=== PATIENT | female | born 1965 | race Caucasian/White ===

== ENCOUNTER 2016-12-26 05:31 | Day surgery (SDC) | payer OTHER ==
[~2016-12-26] VITALS: Ht 152.4 cm; Wt 48.2 kg
[~2016-12-26 05:31] MED LIST: LOVASTATIN; METFORMIN; VITAMIN C; VITAMIN D
[2016-12-26] MEDS ORDERED: CALC600T5 PO (06:47)
[2016-12-26] MEDS ORDERED: LISI20TA11 PO (06:47)
[2016-12-26] MEDS ORDERED: CETI10TA34 PO (06:47)
[2016-12-26] MEDS ORDERED: LOVA20TA PO (06:47)
[2016-12-26] MEDS ORDERED: OMEP20CA16 PO (06:47)
[2016-12-26] MEDS ORDERED: GLIP5TAB13 PO (06:47)
[2016-12-26] MEDS ORDERED: MULT-762 PO (06:47)
[2016-12-26 07:05] VITALS: BP 148/72; PULSE 64; RESP 12
[2016-12-26] MEDS ORDERED: FENTAnyl 50 MCG/ML VIAL ONE (07:38)
[2016-12-26] MEDS ORDERED: MIDAZOLAM 1 MG/ML 2 ML INJ ONE (07:39)
--- NOTE | 2016-12-27 04:23 | GILP ---
DATE OF PROCEDURE: 12/26/2016 NAME OF PROCEDURES: Esophagogastroduodenoscopy and biopsy. SURGEON: Leslie Fallon MD PREOPERATIVE DIAGNOSES: 1. Abdominal pain. 2. Chronic heartburn. POSTOPERATIVE DIAGNOSES: 1. Gastroesophageal reflux disease. 2. Gastritis with erosions. 3. Gastric mucosal biopsies were taken for Helicobacter pylori test. INDICATION FOR THE PROCEDURE: Ms. Rhonda Lyon is a 51-year-old female patient who had upper abdom inal pain and chronic heartburn, not responding to therapy, so the patient was scheduled for endosco pic examination for further evaluation. The procedure and possible complications were well explained to the patient and the family and conse nt was obtained. DESCRIPTION OF PROCEDURE: Under the influence of fentanyl and Versed, the gastroscope was carefully introduced into the esophagus and under direct vision, it was advanced to the stomach and through t he pylorus into the duodenal bulb and descending duodenum. FINDINGS: ESOPHAGUS: The patient had gastroesophageal reflux disease. STOMACH: She had gastritis with erosions. Gastric mucosal biopsies were taken for H. pylori test. DUODENUM: Normal. The patient tolerated the procedure very well and there was no complication from the procedure. At the end of the procedure, she was awake with stable vital signs and she was discharged home to the [facility] of her family. IMPRESSION: 1. Gastroesophageal reflux disease. 2. Gastritis with erosions. 3. Gastric mucosal biopsies were taken for Helicobacter pylori test. PLAN: 1. Omeprazole 40 mg p.o. q.a.m. 2. Zantac 300 mg p.o. at bedtime. 3. Await H. pylori test report. Dictated By: LESLIE JONES/KATHY Conf#: [id number] DID#: [id number]
--- NOTE | 2016-12-28 07:06 | CONS ---
DATE OF ADMISSION: 12/26/2016 DATE OF CONSULTATION: TYPE OF CONSULTATION: Preoperative gastroenterology. Dear Dr. Doyle: I thank you very much for this kind referral. HISTORY OF PRESENT ILLNESS: Ms. Rhonda Lyon is a 51-year-old female patient who has been referred to me for further evaluation of upper abdominal pain and chronic heartburn, not responding to thera py. The patient has been taking omeprazole twice a day without relief of the symptoms. She is not taking any nonsteroidal anti-inflammatory agents. There is no history of gallstones. She does not have any fever, chills or jaundice. There is no history of liver disease. Patient used to have koko rrhea and she had a colonoscopy 1 year ago and no colitis or neoplasm was identified. Now the diarr hea has resolved. She is hypertensive. She has diabetes. She does not have any heart disease or l clotilde problem. There is no history of kidney disease. She has hyperlipidemia. SOCIAL HISTORY: She is a nonsmoker. She does not abuse alcohol. FAMILY HISTORY: Particular for the history of stomach cancer in her grandfather. ALLERGIES: SHE STATED THERE IS NO SIGNIFICANT DRUG ALLERGY. MEDICATIONS: 1. Omeprazole twice a day. 2. Medicine for high blood pressure. 3. Glipizide. 4. Lovastatin. PHYSICAL EXAMINATION: VITAL SIGNS: She is 5 feet tall and she weighs 104 pounds. HEART: Examination of the heart reveals normal first and second heart sounds. LUNGS: Clear. ABDOMEN: Soft without any distention. Liver and spleen are not palpable. There are no masses. Th ere is no focal tenderness. Normal bowel sounds are heard. CENTRAL NERVOUS SYSTEM: Does not reveal any focal neurological deficit. IMPRESSION: 1. Upper abdominal pain and chronic heartburn, not responding to therapy with omeprazole twice a da y. 2. The patient also complains of weight loss. 3. Family history of gastric cancer. 4. Hypertension. 5. Diabetes mellitus. 6. Hyperlipidemia. PLAN: 1. Continue omeprazole. 2. Abdominal ultrasound and upper endoscopy for further evaluation. The procedure and possible complications are well explained to the patient. She understands and con sents to the procedure. I thank you once again. With warmest personal regards, Dictated By: LESLIE JONES/KATHY Conf#: [id number] DID#: [id number]
== END 2016-12-26 09:19 | disposition home or self-care (01) ==
LOC: GIL 05:31
PROVIDERS: ATTEND Internal Medicine Gastroenterology
DX: K21.9 Gastro-esophageal reflux disease without esophagitis (principal); K29.60 Other gastritis without bleeding; I10 Essential (primary) hypertension; E11.9 Type 2 diabetes mellitus without complications; E78.5 Hyperlipidemia, unspecified
CPT/HCPCS: 43239; 82962; 87081; J2250; J3010; Z7610